=== PATIENT | female | born 1960 | race Caucasian/White ===

== ENCOUNTER 2024-10-11 06:13 | Inpatient (IN) | payer BC ==
[~2024-10-11] VITALS: Ht 167.6 cm; Wt 88.3 kg
--- NOTE | 2024-10-11 07:08 | ED.PDOC ---
GI ASSESSMENT HPI Comments 64 y/o F, with PMH of IBS and fibromyalgia presents to the ED for CC of abdominal pain. Patient states, she has been experiencing epigastric abdominal that radiates from her back x4days. Patient reports, being seen at [facility] on Thursday (10/07/24) for SS and being told to follow up with her PCP for a CT scan of her abdomen. Patient denies nausea, vomiting, or diarrhea. No other associated symptoms, modifiers, recent injuries or sick contacts present at this time. Chief Complaint: Abdominal Pain Time Seen by MD: 06:30 Reviewed Notes: Nurses Notes, Medications, Allergies Allergies: Coded Allergies: Aspirin (Verified Allergy, Severe, 10/11/24) Erythromycin (Verified Allergy, Severe, 10/11/24) Ibuprofen (Verified Allergy, Severe, 10/11/24) Milnacipran (Verified Allergy, Severe, 10/11/24) Information Source: Patient Mode of Arrival: Ambulatory Timing: Days Duration: Since onset Prehospital treatment: None Quality: None Vomitus: None Stool: Normal Severity: Moderate Recent: None Recent Hx of: None Pain Location: Epigastric Modifying Factors: Nothing Associated sign and symptoms: Abdominal Pain Past Medical History Past Medical History (Other): IBS, FIBROMYALGIA Surgical History: Appendectomy [employer] History: Ovarian Cysts Family History Family History: Unknown Social History Smoker: Non-Smoker Alcohol: Denies ETOH Use Drugs: Denies Drug Use Lives In: Home Constitutional: denies: chills, diaphoresis, fatigue, fever, malaise, sweats, weakness, others EENTM: denies: blurred vision, double vision, ear bleeding, ear discharge, ear drainage, ear pain, ear ringing, eye pain, eye redness, hearing loss, mouth pain, mouth swelling, nasal discharge, nose bleeding, nose congestion, nose pain, photophobia, tearing, throat pain, throat swelling, voice changes, others Respiratory: denies: cough, hemoptysis, orthopnea, SOB at rest, shortness of breath, SOB with excertion, stridor, wheezing, others Cardiovascular: denies: chest pain, dizzy spells, diaphoresis, Dyspnea on exertion, edema, irregular heart beat, left arm pain, lightheadedness, palpitations, PND, syncope, others Gastrointestinal: reports: abdominal pain; denies: abdomen distended, blood streaked bowels, constipated, diarrhea, dysphagia, difficulty swallowing, hematemesis, melena, nausea, poor appetite, poor fluid intake, rectal bleeding, rectal pain, vomiting, others Genitourinary: denies: abnormal vagina bleeding, burning, dyspareunia, dysuria, flank pain, frequency, hematuria, incontinence, pain, , vagina discharge, urgency, others Neurological: denies: dizziness, fainting, headache, left sided numbness, left sided weakness, numbness, paresthesia, pre-existing deficit, right sided numbness, right sided weakness, seizure, speech problems, tingling, tremors, weakness, others Musculoskeletal: reports: back pain; denies: gout, joint pain, joint swelling, muscle pain, muscle stiffness, neck pain, others Integumetry: denies: bruises, change in color, change in hair/nails, dryness, laceration, lesions, lumps, rash, wounds, others Allergic/Immunocompromised: denies: Difficulty Healing, Frequent Infections, Hives, Itching, others Hematologic/Lymphatic: denies: anemia, blood clots, easy bleeding, easy bruising, swollen glands, others Endocrine: denies: excessive hunger, excessive sweating, excessive thirst, excessive urination, flushing, intolerance to cold, intolerance to heat, unexplained weight gain, unexplained weight loss, others Psychiatric: denies: anxiety, bipolar disorder, depression, hopeless, panic disorder, schizophrenia, sleepless, suicidal, others All Other Systems: Reviewed and Negative Physical Exam General Appearance: Moderate Distress HEENT: Normal ENT Inspection, Pharynx Normal, TMs Normal Neck: Full Range of Motion, Non-Tender, Normal, Normal Inspection Respiratory: Chest Non-Tender, Lungs Clear, No Accessory Muscle Use, No Respir atory Distress, Normal Breath Sounds Cardiovascular: No Edema, No JVD, No Murmur, No Gallop, Normal Peripheral Pulses, Regular Rate/Rhythm Breast Exam: Deferred Gastrointestinal: No Organomegaly, Non Tender, No Pulsatile Mass, Normal Bowel Sounds, Soft Genitalia: Deferred Pelvic: Deferred Rectal: Deferred Extremities: No calf tenderness, Normal capillary refill, Normal inspection, Normal range of motion, Non-tender, No pedal edema Musculoskeletal : Apperance: Normal Neurologic: Alert, brush filler hand II-XII nml as Tested, No Motor Deficits, Normal Affect, Normal Mood, No Sensory Deficits Cerebellar Function: Normal Reflexes: Normal Skin: Dry, Normal Color, Warm Peripheral Pulses: 3+ Radial (R), 3+ Radial (L) Lymphatic: No Adenopathy EKG EKG : Pulse Rate (adult): 59 [place]: Normal Cardiac Rhythm: NSR Block: None Hypertrophy: None ST: Normal Was a procedure done? Was a procedure done?: No GI differential Dx Differential Diagnosis: Cholangitis, Cholecystitis, Diverticular disease, Esophagitis, Gastritis/PUD, Gastroenteritis, Inflammatory BD, Ischemic Bowel X-Ray, Labs, Meds, VS Vital Signs Date Time Temp Pulse Resp B/P (MAP) Pulse Ox O2 Delivery O2 Flow Rate FiO2 10/11/24 08:43 59 10/11/24 07:35 97.0 74 16 151/82 (105) 96 97.0 10/11/24 06:20 97.5 82 18 138/83 (101) 96 97.5 Lab Test 10/11/24 07:01 10/11/24 06:45 Range/Units White Blood Count 11.1 H 4.4-10.8 10^3/uL Red Blood Count 5.22 H 4.0-5.20 10^6/uL Hemoglobin 14.7 12.2-16.2 g/dL Hematocrit 43.6 36.0-46.0 % Mean Corpuscular Volume 83.5 80.0-100.0 fL Mean Corpuscular Hemoglobin 28.1 28.0-32.0 pg Mean Corpuscular Hemoglobin Concent 33.7 32.0-36.0 g/dL Red Cell Distribution Width 15.8 H 11.8-14.3 % Platelet Count 384 140-450 10^3/uL Mean Platelet Volume 7.7 6.9-10.8 fL Neutrophils (%) (Auto) 76.2 37.0-80.0 % Lymphocytes (%) (Auto) 16.0 10.0-50.0 % Monocytes (%) (Auto) 4.8 0.0-12.0 % Eosinophils (%) (Auto) 2.1 0.0-7.0 % Basophils (%) (Auto) 0.9 0.0-2.0 % Neutrophils # (Auto) 8.4 1.6-8.6 10 ^3/uL Lymphocytes # (Auto) 1.8 0.4-5.4 10 ^3/uL Monocytes # (Auto) 0.5 0-1.3 10 ^3/uL Eosinophils # (Auto) 0.2 0-0.8 10 ^3/uL Basophils # (Auto) 0.1 0-0.2 10 ^3/uL Nucleated Red Blood Cells 0.0 % Sodium Level 142 136-145 mmol/L Potassium Level 3.3 L 3.5-5.1 mmol/L Chloride Level 104 98-107 mmol/L Carbon Dioxide Level 26 20-31 mmol/L Anion Gap 12 5-15 Blood Urea Nitrogen 13 9-23 mg/dL Creatinine 1.03 H 0.550-1.02 mg/dL Glomerular Filtration Rate Calc 61 >90 mL/min BUN/Creatinine Ratio 12.6 10.0-20.0 Serum Glucose 92 74-106 mg/dL Calcium Level 10.8 H 8.7-10.4 mg/dL Urine Color Yellow Yellow Urine Clarity Clear Clear Urine pH 5.5 5.0-9.0 Urine Specific [place] 1.028 1.001-1.035 Urine Protein Negative Negative Urine Ketones Trace Negative Urine Blood Negative Negative /uL Urine Nitrite Negative Negative Urine Bilirubin Negative Negative Urine Urobilinogen Normal Negative mg/dL Urine Leukocyte Esterase 1+ Negative /uL Urine RBC 5 0 - 4 /hpf Urine Microscopic WBC 6 H 0-5 /HPF Urine Squamous Epithelial Cells Few <5 /hpf Urine Calcium Oxalate Crystals Few None Seen Urine Bacteria None seen None Seen /hpf Urine Mucus Few None Seen Urine Glucose Normal Normal mg/dL Current Medications Medications (Trade) Dose Ordered Sig/Crista Route Start Time Stop Time Status Last Admin Pantoprazole Sodium (Protonix) 40 mg ONCE ONCE IV 10/11/24 07:15 10/11/24 07:16 DC 10/11/24 08:02 Ceftriaxone Sodium 50 ml @ 100 mls/hr ONCE ONCE IV 10/11/24 08:00 10/11/24 08:29 DC 10/11/24 08:05 Potassium Bicarbonate (Klor-Con/Ef) 50 meq ONCE ONCE PO 10/11/24 08:00 10/11/24 08:01 DC 10/11/24 08:05 Patient alert. Complaining of abdominal pain for many months. Vitals stable. Answering questions. Seen in urgent care last week for which she was told to get a scan. She continues to have abdominal pain where she can not eat. Abdomen is soft. Possibly need endoscope colonoscopy. Explained to the patient. Continue monitoring. [address] [address] Ph: [phone] DIAGNOSTIC IMAGING Diagnostic Imaging Report : [id number] Signed PATIENT: PETRA PARADACCT: [id number] UNIT: [id number] : 1960 LOC: ER ROOM / BED: / AGE / SEX: 64 / F ADM STATUS: REG ER SERVICE [id number] ORDERING PHYSICIAN: JULIA COFFEY MD PROCEDURE(s): ABPL - CT AB PEL WO CON-NO ORAL OR IV REASON: colitis ORDER NUMBER(s): [id number], ACCESSION NUMBER(s): [id number] CLINICAL INFORMATION: Colitis. TECHNIQUE: Axial CT images of the abdomen and pelvis were obtained without IV contrast. Coronal and sagittal reformatted images were obtained, reviewed, and stored. Evaluation of the parenchymal organs is limited without IV contrast. Evaluation of the bowel and mesentery is limited without oral contrast. All CT scans at this medical facility are performed using dose modulation techniques as appropriate to a performed exam including the following: Automated exposure control was utilized; adjustment of the MA and/or KV according to patient size; and use of iterative reconstruction technique. CTDIvol = 11.14 mGy DLP = 598.4 mGy-cm COMPARISON: None FINDINGS: Lung bases: Lung bases are clear. Liver: Small low-attenuation lesion near the hepatic dome, possible cyst, but too small to characterize. Biliary: Gallbladder is moderately distended. No calcified gallstones visualized. Spleen: Unremarkable. Pancreas: Grossly unremarkable in its noncontrast enhanced appearance. Adrenal glands: Unremarkable. No mass. Kidneys: No hydronephrosis. No renal or ureteral calculi. Aorta/Vascular: No aneurysm or significant calcification. Retroperitoneum: No mass or lymphadenopathy. Bowel/mesentery: No small bowel obstruction. No free air or free fluid. Appendix is not visualized. Scattered colonic diverticula without adjacent inflammatory changes to suggest diverticulitis. Pelvic organs: Grossly unremarkable. Bladder: Underdistended and suboptimally evaluated. No gross abnormality identified. Abdominal wall: No mass or hernia. Bones: No acute fracture or suspicious intraosseous lesion. IMPRESSION: 1. Scattered colonic diverticula without adjacent inflammatory changes to suggest diverticulitis. 2. No small bowel obstruction. 3. Distended gallbladder with no calcified gallstones visualized. Correlate with clinical findings. If clinically indicated, ultrasound could be obtained to further evaluate. 4. Additional nonacute findings as described above. ATED BY: OBED VOGEL DO DICTATED DATE/TIME: 10/11/24903 SIGNED BY: OBED VOGEL DO SIGNED DATE/TIME: 10/11/24903 CC: Time of 1ST Reevaluation: 07:00 Reevaluation 1ST: Unchanged Patient Education/Counseling: Diagnosis, Treatment Family Education/Counseling: No Family Present SEPSIS Sepsis Screen Date sepsis recognized/suspect: Oct 11, 2024 Time Sepsis recognized/suspect: 619 Recent Procedure: No On Antibiotic Therapy: No Respiratory Rate >20: No Heart Rate >90: No Temp<36 C (96.8 F) or >38.3 C: No SBP <90 or MAP <65 mmHG: No New Acute Mental Status Change: No Is the patient on CPAP, BIPAP,: No Physician Orders Ct Ab Pel Wo Con-No Oral Or Iv (10/11/24 07:54) Electrocardigram (10/11/24 08:51) Vital Signs Date Time Temp Pulse Resp B/P (MAP) Pulse Ox O2 Delivery O2 Flow Rate FiO2 10/11/24 08:43 59 10/11/24 07:35 97.0 74 16 151/82 (105) 96 97.0 10/11/24 06:20 97.5 82 18 138/83 (101) 96 97.5 Laboratory Tests Test 10/11/24 07:01 White Blood Count 11.1 10^3/uL (4.4-10.8) H Medications Medications Dose Ordered Sig/Crista Route Start Time Stop Time Status Last Admin Dose Admin Ceftriaxone Sodium 50 ml @ 100 mls/hr ONCE ONCE IV 10/11/24 08:00 10/11/24 08:29 DC 10/11/24 08:05 Pantoprazole Sodium 40 mg ONCE ONCE IV 10/11/24 07:15 10/11/24 07:16 DC 10/11/24 08:02 Potassium Bicarbonate 50 meq ONCE ONCE PO 10/11/24 08:00 10/11/24 08:01 DC 10/11/24 08:05 Departure 1 Departure Time of Disposition: 07:14 Impression: Primary Impression: Acute abdominal pain Additional Impression: Gastritis Qualified Codes: K29.00 - Acute gastritis without bleeding Disposition: ADMITTED INPATIENT Admit to: Med Surg Condition: Guarded Critical Care Note Critical Care Time?: No Stability Stability form required: No Heart Score Heart Score: Heart Score Response (Comments) Value History N/A 0 EKG N/A 0 Age N/A 0 Risk Factors N/A 0 Troponin N/A 0 Total 0 I personally scribed for JULIA COFFEY MD ([email or web address]) on 10/11/24 at 07:08. Electronically submitted by Maria Teresa Reed ([email or web address]). I personally scribed for JULIA COFFEY MD ([email or web address]) on 10/11/24 at 09:09. Electronically submitted by Mari aTeresa Reed ([email or web address]). JULIA COFFEY MD Oct 11, 2024 07:08
[2024-10-11 07:33] LABS: Hematocrit 43.6 % (36.0-46.0); Hemoglobin 14.7 g/dL (12.2-16.2); Mean Corpuscular Hemoglobin 28.1 pg (28.0-32.0); Mean Corpuscular Volume 83.5 fL (80.0-100.0); Nucleated Red Blood Cells % 0.0 %
[2024-10-11 07:37] LABS: Urine Protein, UAD Negative (Negative)
[2024-10-11 07:43] LABS: Chloride 104 mmol/L (98-107); Sodium 142 mmol/L (136-145)
[2024-10-11 07:44] LABS: Anion Gap 12 (5-15); Carbon Dioxide 26 mmol/L (20-31)
[2024-10-11 07:49] LABS: Calcium 10.8 mg/dL (8.7-10.4); Potassium 3.3 mmol/L (3.5-5.1)
[2024-10-11 07:50] LABS: BUN/Creatinine Ratio 12.6 (10.0-20.0); Blood Urea Nitrogen 13 mg/dL (9-23); Glucose 92 mg/dL (74-106)
[2024-10-11] MEDS: PANTOPRAZOLE 40 MG/10 ML VIAL INJ IV ONE (08:02)
[2024-10-11] MEDS: cefTRIAXone 1GM/50ML D5W 50 ML IV ONE (08:05)
[2024-10-11] MEDS: POTASSIUM EFFERVESENT TAB 25 MEQ PO ONE (08:05)
--- NOTE | 2024-10-11 09:06 | DVH ---
CLINICAL INFORMATION: Colitis. TECHNIQUE: Axial CT images of the abdomen and pelvis were obtained without IV contrast. Coronal and s agittal reformatted images were obtained, reviewed, and stored. Evaluation of the parenchymal organs is limited without IV contrast. Evaluation of the bowel and mesentery is limited without oral contras t. All CT scans at this medical facility are performed using dose modulation techniques as appropriat e to a performed exam including the following: Automated exposure control was utilized; adjustment of the MA and/or KV according to patient size; and use of iterative reconstruction technique. CTDIvol = 11.14 mGy DLP = 598.4 mGy-cm COMPARISON: None FINDINGS: Lung bases: Lung bases are clear. Liver: Small low-attenuation lesion near the hepatic dome, possible cyst, but too small to characteri ze. Biliary: Gallbladder is moderately distended. No calcified gallstones visualized. Spleen: Unremarkable. Pancreas: Grossly unremarkable in its noncontrast enhanced appearance. Adrenal glands: Unremarkable. No mass. Kidneys: No hydronephrosis. No renal or ureteral calculi. Aorta/Vascular: No aneurysm or significant calcification. Retroperitoneum: No mass or lymphadenopathy. Bowel/mesentery: No small bowel obstruction. No free air or free fluid. Appendix is not visualized. S cattered colonic diverticula without adjacent inflammatory changes to suggest diverticulitis. Pelvic organs: Grossly unremarkable. Bladder: Underdistended and suboptimally evaluated. No gross abnormality identified. Abdominal wall: No mass or hernia. Bones: No acute fracture or suspicious intraosseous lesion. IMPRESSION: 1. Scattered colonic diverticula without adjacent inflammatory changes to suggest diverticulitis. 2. No small bowel obstruction. 3. Distended gallbladder with no calcified gallstones visualized. Correlate with clinical findings. I f clinically indicated, ultrasound could be obtained to further evaluate. 4. Additional nonacute findings as described above.
[2024-10-11] MEDS ORDERED: ONDANSETRON HCL 4 MG/2 ML VIAL IV PRN (09:45)
[2024-10-11] MEDS ORDERED: DOCUSATE SOD 100 MG CAP PO PRN (09:45)
[2024-10-11] MEDS ORDERED: MORPHINE SULFATE INJ 2 MG/ml SYRG IV PRN (09:45)
[2024-10-11] MEDS ORDERED: ACETAMINOPHEN 325 MG TAB PO PRN (09:45)
--- NOTE | 2024-10-11 09:48 | DVHHP2 ---
History of Present Illness Reason for Visit: Abdominal pain History of Present Illness Lolis Biggs is a 64-year-old female with past medical history of fibromyalgia, hypertension, and IBS, who came to the hospital due to abdominal pain. Patient states her abdominal pain started about 1 week ago. She describes it as epigastric, radiates to her back, with associated nausea and vomiting. State she has had a hard time keeping food and drink down for the last week. Cardiovascular: HTN GI: Irritable bowel disease Rheumatologic: Fibromyalgia Past Surgical History: Appendectomy, Other (right shoulder, ovarian cyst removal) Smoke: No ALCOHOL: none Drugs: None Lives: with Family Domestic Violence: Neg Review of Systems Constitutional: No: Fever, Chills, Sweats, Weakness, Malaise, Other Eyes: No: Pain, Vision change, Conjunctivae inflammation, Eyelid inflammation, Other, Redness ENT: No: Ear pain, Ear discharge, Nose pain, Nose discharge, Nose congestion, Mouth pain, Mouth swelling, Throat pain, Throat swelling, Other Respiratory: No: Cough, Dry, Shortness of breath, SOB with excertion, Wheezing, Hemoptysis, Pleuritic Pain, Sputum, Wheezing, Other Cardiovascular: No: Chest Pain, Palpitations, Orthopnea, Paroxysmal Noc. Dyspnea, Edema, Lt Headedness, Other Gastrointestinal: Nausea, Vomiting, Abdominal Pain; No: Diarrhea, Constipation, Melena, Hematochezia, Other Genitourinary: No Dysuria, No Frequency, No Incontinence, No Hematuria, No Retention, No Other Musculoskeletal: No: other, neck pain, shoulder pain, arm pain, back pain, hand pain, leg pain, foot pain Skin: No: Rash, Lesions, Jaundice, Bruising, Other Neurological: No: Weakness, Numbness, Incoordination, Change in speech, Confusion, Seizures, Other Allergies: Coded Allergies: Aspirin (Verified Allergy, Severe, 10/11/24) Erythromycin (Verified Allergy, Severe, 10/11/24) Ibuprofen (Verified Allergy, Severe, 10/11/24) Milnacipran (Verified Allergy, Severe, 10/11/24) Acetaminophen (Verified Allergy, Unknown, 10/11/24) Codeine (Verified Allergy, Unknown, 10/11/24) Hydrocodone (Verified Allergy, Unknown, 10/11/24) Procaine (Verified Allergy, Unknown, 10/11/24) Exam Vital Signs Vital Signs Date Time Temp Pulse Resp B/P (MAP) Pulse Ox O2 Delivery O2 Flow Rate FiO2 10/11/24 09:09 59 10/11/24 07:35 97.0 16 151/82 (105) 96 97.0 General Appearance: Alert, Oriented X3, Cooperative, mild distress HEENT: Atraumatic, PERRLA Respiratory: Clear to auscultation, Normal air movement Cardiovascular: Regular rate, Normal S1, Normal S2 Abdominal: Normal bowel sounds, Soft, Other (epigastric pain) Extremities: No clubbing, No cyanosis, No edema, Normal pulses, No t enderness/swelling Skin: No rashes, No breakdown, No significant lesion Neuro: Normal gait, Normal speech, Strength at 5/5 X4 ext, Normal tone Psych/Mental Status: Mental status NL, Mood NL Labs/Xrays Labs Test 10/11/24 07:01 10/11/24 06:45 Range/Units White Blood Count 11.1 H 4.4-10.8 10^3/uL Red Blood Count 5.22 H 4.0-5.20 10^6/uL Hemoglobin 14.7 12.2-16.2 g/dL Hematocrit 43.6 36.0-46.0 % Mean Corpuscular Volume 83.5 80.0-100.0 fL Mean Corpuscular Hemoglobin 28.1 28.0-32.0 pg Mean Corpuscular Hemoglobin Concent 33.7 32.0-36.0 g/dL Red Cell Distribution Width 15.8 H 11.8-14.3 % Platelet Count 384 140-450 10^3/uL Mean Platelet Volume 7.7 6.9-10.8 fL Neutrophils (%) (Auto) 76.2 37.0-80.0 % Lymphocytes (%) (Auto) 16.0 10.0-50.0 % Monocytes (%) (Auto) 4.8 0.0-12.0 % Eosinophils (%) (Auto) 2.1 0.0-7.0 % Basophils (%) (Auto) 0.9 0.0-2.0 % Neutrophils # (Auto) 8.4 1.6-8.6 10 ^3/uL Lymphocytes # (Auto) 1.8 0.4-5.4 10 ^3/uL Monocytes # (Auto) 0.5 0-1.3 10 ^3/uL Eosinophils # (Auto) 0.2 0-0.8 10 ^3/uL Basophils # (Auto) 0.1 0-0.2 10 ^3/uL Nucleated Red Blood Cells 0.0 % Sodium Level 142 136-145 mmol/L Potassium Level 3.3 L 3.5-5.1 mmol/L Chloride Level 104 98-107 mmol/L Carbon Dioxide Level 26 20-31 mmol/L Anion Gap 12 5-15 Blood Urea Nitrogen 13 9-23 mg/dL Creatinine 1.03 H 0.550-1.02 mg/dL Glomerular Filtration Rate Calc 61 >90 mL/min BUN/Creatinine Ratio 12.6 10.0-20.0 Serum Glucose 92 74-106 mg/dL Calcium Level 10.8 H 8.7-10.4 mg/dL Urine Color Yellow Yellow Urine Clarity Clear Clear Urine pH 5.5 5.0-9.0 Urine Specific [place] 1.028 1.001-1.035 Urine Protein Negative Negative Urine Ketones Trace Negative Urine Blood Negative Negative /uL Urine Nitrite Negative Negative Urine Bilirubin Negative Negative Urine Urobilinogen Normal Negative mg/dL Urine Leukocyte Esterase 1+ Negative /uL Urine RBC 5 0 - 4 /hpf Urine Microscopic WBC 6 H 0-5 /HPF Urine Squamous Epithelial Cells Few <5 /hpf Urine Calcium Oxalate Crystals Few None Seen Urine Bacteria None seen None Seen /hpf Urine Mucus Few None Seen Urine Glucose Normal Normal mg/dL TECHNIQUE: Axial CT images of the abdomen and pelvis were obtained without IV contrast. FINDINGS: Lung bases: Lung bases are clear. Liver: Small low-attenuation lesion near the hepatic dome, possible cyst, but too small to characterize. Biliary: Gallbladder is moderately distended. No calcified gallstones visualized. Spleen: Unremarkable. Pancreas: Grossly unremarkable in its noncontrast enhanced appearance. Adrenal glands: Unremarkable. No mass. Kidneys: No hydronephrosis. No renal or ureteral calculi. Aorta/Vascular: No aneurysm or significant calcification. Retroperitoneum: No mass or lymphadenopathy. Bowel/mesentery: No small bowel obstruction. No free air or free fluid. Appendix is not visualized. Scattered colonic diverticula without adjacent inflammatory changes to suggest diverticulitis. Pelvic organs: Grossly unremarkable. Bladder: Underdistended and suboptimally evaluated. No gross abnormality identified. Abdominal wall: No mass or hernia. Bones: No acute fracture or suspicious intraosseous lesion. IMPRESSION: 1. Scattered colonic diverticula without adjacent inflammatory changes to suggest diverticulitis. 2. No small bowel obstruction. 3. Distended gallbladder with no calcified gallstones visualized. Correlate with clinical findings. If clinically indicated, ultrasound could be obtained to f urther evaluate. 4. Additional nonacute findings as described above. SEPSIS Sepsis Screen Date sepsis recognized/suspect: Oct 11, 2024 Time Sepsis recognized/suspect: 619 Recent Procedure: No On Antibiotic Therapy: No Respiratory Rate >20: No Heart Rate >90: No Temp<36 C (96.8 F) or >38.3 C: No SBP <90 or MAP <65 mmHG: No New Acute Mental Status Change: No Is the patient on CPAP, BIPAP,: No Physician Orders Ct Ab Pel Wo Con-No Oral Or Iv (10/11/24 07:54) Electrocardigram (10/11/24 08:51) Abdomen Limited (10/11/24 09:35) Vital Signs Date Time Temp Pulse Resp B/P (MAP) Pulse Ox O2 Delivery O2 Flow Rate FiO2 10/11/24 09:09 59 10/11/24 08:43 59 10/11/24 07:35 97.0 74 16 151/82 (105) 96 97.0 10/11/24 06:20 97.5 82 18 138/83 (101) 96 97.5 Laboratory Tests Test 10/11/24 07:01 White Blood Count 11.1 10^3/uL (4.4-10.8) H Medications Medications Dose Ordered Sig/Crista Route Start Time Stop Time Status Last Admin Dose Admin Ceftriaxone Sodium 50 ml @ 100 mls/hr ONCE ONCE IV 10/11/24 08:00 10/11/24 08:29 DC 10/11/24 08:05 100 MLS/HR Pantoprazole Sodium 40 mg ONCE ONCE IV 10/11/24 07:15 10/11/24 07:16 DC 10/11/24 08:02 40 MG Potassium Bicarbonate 50 meq ONCE ONCE PO 10/11/24 08:00 10/11/24 08:01 DC 10/11/24 08:05 50 MEQ Assessment/Plan Assessment/Plan Assessment: Acute abdominal pain, Possible gastritis, Possible diverticulitis, IBS, Fibromyalgia, Hypertension, Plan: Admit to Med-Surg, Abdominal ultrasound, GI consult, IV hydration, IV antibiotics, Antiemetics, Home medications reconciled, Plan discussed with: Patient My Orders Orders - NOBLE LEAVITT Procedure Category Date Status Time Abdomen Limited US 10/11/24 Logged 09:35 Date of Service: Oct 11, 2024 Billing Provider: NOBLE LEAVITT Common Visit Codes: [id number] INP/OBS CARE (MOD) NOBLE LEAVITT Oct 11, 2024 09:47
[2024-10-11] MEDS: HYDROcodone-ACET 5/325MG TAB PO PRN (10:01)
--- NOTE | 2024-10-11 11:10 | DVH ---
INDICATION: Possible cholecystitis TECHNIQUE: Multiple real-time sonographic images of the abdomen were obtained. COMPARISON: None FINDINGS: The liver is homogenous in echogenicity. The liver measures 15cm. No intrahepatic biliary ductal dilatation is noted. The gallbladder wall measures 0.2 cm and is unremarkable. No gallstones or sludge is seen. The commo n duct measures 0.5 cm and is unremarkable. No pericholecystic fluid is noted. The right kidney measures 9cm. No hydronephrosis. The pancreas is not well visualized due to obscuration from bowel gas. The visualized portions of the IVC and aorta are grossly unremarkable. IMPRESSION: Normal exam of the abdomen.
[2024-10-11] MEDS ORDERED: LEVOTAB51 PO (11:27)
[2024-10-11] MEDS ORDERED: AMLO1TAB23 PO (11:27)
[2024-10-11] MEDS ORDERED: METOCLOPRAMIDE HCL 5MG/ml INJ 2ml VIAL IV PRN (11:30)
[2024-10-11] MEDS: SODIUM CHLORIDE 0.9% 1,000 ML IV ONE (11:56)
[2024-10-11 14:00] VITALS: BP 139/76; PULSE 62; RESP 16; TEMP 97.5; O2SAT 94
--- NOTE | 2024-10-11 14:36 | DVHINCON2 ---
GI Consult Consult Note GI consult note Date of Consultation: 10/11/2024 Chief Complaint: Possible gastritis, possible diverticulitis Referring Physician: Amos ROMERO H&P: 64-year-old female with past medical history of fibromyalgia, hypertension and IBS presented to hospital complaining of epigastric abdominal pain, which started one month ago. Patient also has nausea and vomiting about a week ago, throwing up mostly food that she is eating, denies any hematemesis. Patient has noticed dark stool. No red blood in stool. Has been taking Pepto-Bismol [id number] for abdominal pain. Diagnosed with PUD in past. No EGD in past. Patient admits to taking Excedrin two pills every 4 hours because of her pain. Denies alcohol use Past Medical History: Fibromyalgia, hypertension, IBS Past Surgical History: Appendectomy, right shoulder, ovarian cyst removal Social History: NO smoking, drinking ETOH and use of illegal drugs. Family History: Noncontributory Review of Systems: Constitutional: no fever, chill, weight loss HEENT: no eye pain, no hearing loss, no oral lesion, no scleral icterus Heart: no chest pain, no chest pressure Lung: no cough, no dyspnea with exertion Abdomen: see HPI Physical exam: General: NAD, AAOX3 Chest: lung brown clear to auscultation Heart: RRR, no murmur Abdomen: Epigastric abdominal tenderness to palpation, +BS Labs: Labs Test 10/11/24 07:01 10/11/24 06:45 Range/Units White Blood Count 11.1 H 4.4-10.8 10^3/uL Red Blood Count 5.22 H 4.0-5.20 10^6/uL Hemoglobin 14.7 12.2-16.2 g/dL Hematocrit 43.6 36.0-46.0 % Mean Corpuscular Volume 83.5 80.0-100.0 fL Mean Corpuscular Hemoglobin 28.1 28.0-32.0 pg Mean Corpuscular Hemoglobin Concent 33.7 32.0-36.0 g/dL Red Cell Distribution Width 15.8 H 11.8-14.3 % Platelet Count 384 140-450 10^3/uL Mean Platelet Volume 7.7 6.9-10.8 fL Neutrophils (%) (Auto) 76.2 37.0-80.0 % Lymphocytes (%) (Auto) 16.0 10.0-50.0 % Monocytes (%) (Auto) 4.8 0.0-12.0 % Eosinophils (%) (Auto) 2.1 0.0-7.0 % Basophils (%) (Auto) 0.9 0.0-2.0 % Neutrophils # (Auto) 8.4 1.6-8.6 10 ^3/uL Lymphocytes # (Auto) 1.8 0.4-5.4 10 ^3/uL Monocytes # (Auto) 0.5 0-1.3 10 ^3/uL Eosinophils # (Auto) 0.2 0-0.8 10 ^3/uL Basophils # (Auto) 0.1 0-0.2 10 ^3/uL Nucleated Red Blood Cells 0.0 % Sodium Level 142 136-145 mmol/L Potassium Level 3.3 L 3.5-5.1 mmol/L Chloride Level 104 98-107 mmol/L Carbon Dioxide Level 26 20-31 mmol/L Anion Gap 12 5-15 Blood Urea Nitrogen 13 9-23 mg/dL Creatinine 1.03 H 0.550-1.02 mg/dL Glomerular Filtration Rate Calc 61 >90 mL/min BUN/Creatinine Ratio 12.6 10.0-20.0 Serum Glucose 92 74-106 mg/dL Calcium Level 10.8 H 8.7-10.4 mg/dL Urine Color Yellow Yellow Urine Clarity Clear Clear Urine pH 5.5 5.0-9.0 Urine Specific [place] 1.028 1.001-1.035 Urine Protein Negative Negative Urine Ketones Trace Negative Urine Blood Negative Negative /uL Urine Nitrite Negative Negative Urine Bilirubin Negative Negative Urine Urobilinogen Normal Negative mg/dL Urine Leukocyte Esterase 1+ Negative /uL Urine RBC 5 0 - 4 /hpf Urine Microscopic WBC 6 H 0-5 /HPF Urine Squamous Epithelial Cells Few <5 /hpf Urine Calcium Oxalate Crystals Few None Seen Urine Bacteria None seen None Seen /hpf Urine Mucus Few None Seen Urine Glucose Normal Normal mg/dL Imaging: CT abdomen pelvis IMPRESSION: 1. Scattered colonic diverticula without adjacent inflammatory changes to suggest diverticulitis. 2. No small bowel obstruction. 3. Distended gallbladder with no calcified gallstones visualized. Correlate with clinical findings. If clinically indicated, ultrasound could be obtained to further evaluate. 4. Additional nonacute findings as described above. Abdominal ultrasound IMPRESSION: Normal exam of the abdomen. Assessment: Abdominal pain Nausea and vomiting Plan: Discussed with Dr. Grant - Pt will be scheduled for an EGD tomorrow 10/12/2024. Pt was informed of the risks (bleeding, infection, perforation, reaction to sedation medications and cardiopulmonary arrest) and benefit and is agreeable to undergo the procedures. NPO after midnight Protonix and Carafate Monitor labs Discussed plan with patient and RN Thank you for this consult Date of Service: Oct 11, 2024 Billing Provider: MILY DAY Common Visit Codes: CONSULT ONLY Consultation Codes: [id number] CONSULT <60MIN MILY DAY Oct 11, 2024 14:36
[2024-10-11 18:21] VITALS: BP 134/66; PULSE 68; RESP 18; TEMP 97.8; O2SAT 96
[2024-10-11 21:00] VITALS: BP 136/81; PULSE 88; RESP 17; TEMP 97.9; O2SAT 95
[2024-10-11] MEDS: SUCRALFATE 1 GM/10 ML ORAL SUSP PO SCH (21:44)
[2024-10-11 22:14] VITALS: O2SAT 96
[2024-10-12 05:00] VITALS: BP 141/79; PULSE 61; RESP 18; TEMP 97.9; O2SAT 94
[2024-10-12 06:49] LABS: Hematocrit 36.1 % (36.0-46.0); Hemoglobin 12.3 g/dL (12.2-16.2); Mean Corpuscular Hemoglobin 28.4 pg (28.0-32.0); Mean Corpuscular Volume 83.1 fL (80.0-100.0); Nucleated Red Blood Cells % 0.1 %
[2024-10-12 06:56] LABS: INR 1.03 (0.9-1.15); Prothrombin Time 10.9 sec (9.3-11.8)
[2024-10-12 07:01] LABS: Alanine Aminotransferase 13 U/L (7-40); Albumin 4.1 g/dL (3.2-4.8); Alkaline Phosphatase 76 U/L (46-116); Anion Gap 11 (5-15); BUN/Creatinine Ratio 14.8 (10.0-20.0); Bilirubin, Total 0.4 mg/dL (0.2-1.0); Blood Urea Nitrogen 13 mg/dL (9-23); Calcium 9.9 mg/dL (8.7-10.4); Carbon Dioxide 24 mmol/L (20-31); Glucose 81 mg/dL (74-106); Potassium 3.8 mmol/L (3.5-5.1); Sodium 143 mmol/L (136-145); Total Protein 6.5 g/dL (5.7-8.2)
[2024-10-12 07:09] LABS: Chloride 108 mmol/L (98-107)
--- NOTE | 2024-10-12 07:46 | ECG ---
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
[2024-10-12 09:00] VITALS: BP 130/75; PULSE 64; RESP 16; TEMP 97.8; O2SAT 95
[2024-10-12] MEDS: LEVOCETIRIZINE 5 MG PO SCH (10:00)
[2024-10-12] MEDS ORDERED: PATIENTS OWN MEDICATION (Amlodipine Besylate 1 TAB) PO SCH (10:00)
[2024-10-12] MEDS: PANTOPRAZOLE 40 MG/10 ML VIAL INJ IV SCH ×2 (10:31→22:18)
[2024-10-12] MEDS ORDERED: ONDANSETRON HCL 4 MG/2 ML VIAL ONE (12:51)
[2024-10-12] MEDS ORDERED: PROPOFOL 10 MG/ML 20 ML IV ONE (12:51)
[2024-10-12] MEDS ORDERED: METOCLOPRAMIDE HCL 5MG/ml INJ 2ml VIAL ONE (12:51)
[2024-10-12 13:04] VITALS: PULSE 89; RESP 12; O2SAT 98
--- NOTE | 2024-10-12 13:26 | DVHOP2 ---
Operative Report DATE OF OPERATION: 10/12/24 PROCEDURE: Upper Endoscopy with biopsy. PREOPERATIVE INDICATION: The patient is a 64 -year-old female undergoing endoscopy for nausea vomiting abdominal pain and questionable history of coffee- ground POSTOPERATIVE DIAGNOSES: 1. 2-3 cm sliding-type hiatal hernia with slightly irregular squamocolumnar junction minimal grade a erosive esophagitis 2. Moderate to severe gastritis involving the antrum and distal body of the stomach with multiple gastric ulcers and erosions 3. Wogscloe-ce-glglla duodenitis with a 2 cm duodenal postbulbar ulcer on the superior anterior surface with minimal oozing at the edges from scope pressure ; postbulbar duodenal spasm 4. Otherwise normal examination up to the 2nd and 3rd part of the duodenum with no fresh or old blood in the upper GI tract at this time good bile drainage PROCEDURE PERFORMED BY: Teja Grant GI NURSE: Yue SCOPE: Olympus videoendoscope. ASA CLASS: 3. PREOPERATIVE MEDICATIONS: Mac sedation, Obed PROCEDURE IN DETAIL: After obtaining an informed consent, the patient was placed on left lateral decubitus position. The patient was then sedated with the above medications. A bite block was placed between her teeth. The endoscope was then passed through the oropharynx, into the esophagus, and through the stomach and pylorus up to the second and third part of the duodenum. The endoscope was then withdrawn. Second and 3rd part of the duodenal was normal and there was good bile drainage. The duodenal bulb and postbulbar area showed zqwvgkol-cb-saibad duodenitis There was a 2 cm postbulbar duodenal ulcer on the anterior superior surface of the postbulbar area with surrounding edema and spasm and oozing from scope pressure There was no visible vessel it was Marquis classification C. Duodenal biopsies were obtained. The pre-pyloric area and antrum and body showed [id number] gastritis There were multiple pre-pyloric antral gastric erosions and tiny ulcers. Gastric biopsies were obtained. On retroflexion the fundus and cardia were nor mal. The endoscope was then withdrawn into the distal esophagus where the patient had a 2-3 cm sliding-type hiatal hernia with minimal grade a erosive esophagitis The remaining distal and proximal esophagus and oropharynx were unremarkable The patient tolerated the procedure well without difficulty. COMPLICATIONS : None SPECIMENS: Duodenal biopsies Gastric biopsies DISPOSITION: Transfer back to the floor Stable PLAN: 1. Await for biopsy result 2. Will place pt on Protonix 40 mg bid IV 3. Carafate 1 g p.o. 4 times a day 4. Full liquid diet advance to soft mechanical 5. DC aspirin NSAIDs smoking alcohol TEJA GRANT MD Oct 12, 2024 13:26
--- NOTE | 2024-10-12 15:51 | DVHPNRES ---
Progress Note Date Seen: Oct 12, 2024 Resident Creating Document: LAUREN GONZALEZ RESIDENT Medical Necessity Reason Pt with a Central, PICC or Fol: No Subjective Review of Systems Lolis Biggs is a 64-year-old female with past medical history of fibromyalgia, hypertension and irritable bowel syndrome Came in with the complaints of abdominal pain yesterday. Patient states abdominal pain Has been present since August but but worsened day before yesterday after she went to the chiropractor. The abdominal pain is epigastric, Cramping in nature, 10/ 10 in intensity, radiates to the back , aggravated by movement and relieved by lying down in the bed and staying still. She took some Pepto-Bismol that helped very little with her pain and so she came to the emergency department. Patient states that she had a hard time keeping food and drink down from the last week. Patient denies any fever, chills, shortness of breath, chest pain, nausea or vomiting. PMH: Hypertension, irritable bowel syndrome, fibromyalgia PSH: Appendectomy, right shoulder surgery, ovarian cyst removal Social history: Patient lives with her family. She denies ever smoking, taking alcohol, taking any other illicit drugs. Family history: Reviewed and noncontributory to the management of this case Allergies: Cats, dogs, grass, aspirin()( increases heart rate), erythromycin( causes hives), ibuprofen( causes nausea), lidocaine( makes her ill), codeine( gives her hives) Home medications: Amlodipine ROS: Patient reports that she is feeling a bit better But she still has abdominal pain that aggravates on moving and she rates the pain as 7/ 10 in intensity. she reports she has been NPO since 12 and is ready for the EGD procedure. she is not nauseous and has not vomited. Rest of the ROS is negative Objective vital signs Vital Sign Date Time Temp Pulse Resp B/P (MAP) Pulse Ox O2 Delivery O2 Flow Rate FiO2 10/12/24 13:40 69 16 135/70 (91) 94 10/12/24 13:04 Mask 6.0 98 10/12/24 13:04 98.2 98.2 Total Intake and Output 10/11/24 10/11/24 10/12/24 15:00 23:00 07:00 Intake Total 50 ml 600 ml 100 ml Balance 50 ml 600 ml 100 ml medications Current Medications Medications Dose Ordered Sig/Crista Route Start Time Stop Time Status Last Admin Dose Admin Acetaminophen/ Hydrocodone Bitart 1 tab Q4HP PRN PO 10/11/24 09:45 10/12/24 00:52 1 TAB Ondansetron HCl 4 mg Q4HP PRN IV 10/11/24 09:45 Docusate Sodium 100 mg BIDPRN PRN PO 10/11/24 09:45 Acetaminophen 650 mg Q6HP PRN PO 10/11/24 09:45 Morphine Sulfate 2 mg Q4HPRN PRN IV 10/11/24 09:45 Metronidazole 100 ml @ 100 mls/hr Q8HR IV 10/11/24 14:00 10/12/24 05:35 100 MLS/HR Patient Own Medication 1 tab DAILY PO 10/12/24 10:00 Metoclopramide HCl 10 mg Q8HPRN PRN IV 10/11/24 11:30 Amlodipine Besylate 10 mg DAILY PO 10/12/24 10:00 Sucralfate 1 gm QID@0600,1130,1700,2200 PO 10/12/24 17:00 Pantoprazole Sodium 40 mg BID IV 10/12/24 22:00 Examination Pt is lying on bed General Appearance: Alert, Oriented X3, Cooperative, Not in acute distress HEENT: Atraumatic, Mucous membranes moist/pink Respiratory: Clear to auscultation, Normal air movement, No added sounds Cardiovascular: Regular rate, Normal S1, Normal S2, No murmurs Abdominal: Active bowel sounds, Soft, no distention, tenderness present in the upper right and left quadrant, epigastric region Extremities: No edema, Normal pulses, No tenderness/swelling Skin: No Significant rash, linear scar in the suprapubic region for ovarian cyst removal Neuro: Normal speech, sensorimotor deficits none Psych/Mental Status: Mental status NL, Mood NL Nurse was there as community development director during examination laboratory and microbiology Laboratory Tests 10/12/24 05:53 Test 10/12/24 05:53 Range/Units Serum Glucose 81 74-106 mg/dL Labs and/or images reviewed: Labs reviewed by me, Image(s) reviewed by me Problem List/Assessment/Plan Problem List/Assessment/Plan #acute abdominal pain due to severe gastro- duodenitis #hiatal hernia with erosive esophagitis -IV hydration -Ceftriaxone 1 g IV LD -Ondansetron for nausea -CT Abdomen and pelvis showed: - Scattered colonic diverticula without adjacent inflammatory changes to suggest diverticulitis. -No small bowel obstruction. - Distended gallbladder with no calcified gallstones visualized. Correlate with clinical findings. If clinically indicated, ultrasound could be obtained to further evaluate. -USG showed Normal exam of the abdomen. -patient kept NPO -GI suggested EGD, done today. shows: 1. 2-3 cm sliding-type hiatal hernia with slightly irregular squamocolumnar junction minimal grade a erosive esophagitis 2. Moderate to severe gastritis involving the antrum and distal body of the stomach with multiple gastric ulcers and erosions 3. Lqhvuzfv-qg-qrdnrx duodenitis with a 2 cm duodenal postbulbar ulcer on the superior anterior surface with minimal oozing at the edges from scope pressure ; postbulbar duodenal spasm -Protonix and Carafate given #history of hypertension -Continue with Amlodipine 0 g -monitor BP #history of IBD -continue to monitor GI prophylaxis: Protonix 40 mg IV b.i.d. DVT prophylaxis: patient ambulatory Diet: NPO Goals of care discussed with the patient for more than 27 minutes: Full code status Case discussed with Dr. Carcamo, patient and nurse. Plan discussed with: Patient, Other (rn) Date of Service: Oct 12, 2024 Billing Provider: PATRICIA CARCAMO MD Common Visit Codes: [id number] INP/OBS CARE(HIGH) LAUREN GONZALEZ RESIDENT Oct 12, 2024 15:51 PATRICIA CARCAMO MD Oct 12, 2024 23:33
[2024-10-12] MEDS: SUCRALFATE 1 GM/10 ML ORAL SUSP PO SCH (16:33)
[2024-10-12 17:00] VITALS: BP 138/77; PULSE 62; RESP 16; TEMP 98; O2SAT 95
[2024-10-12 20:00] VITALS: PULSE 66; O2SAT 94
[2024-10-12 21:00] VITALS: BP 134/76; PULSE 66; RESP 18; TEMP 98.3; O2SAT 93
[2024-10-12] MEDS ORDERED: PANTOPRAZOLE 40 MG/10 ML VIAL INJ IV SCH (22:00)
[2024-10-13 01:00] VITALS: BP 123/72; PULSE 67; RESP 17; TEMP 97.7; O2SAT 94
[2024-10-13 05:00] VITALS: BP 119/64; PULSE 60; RESP 17; TEMP 97.7; O2SAT 93
[2024-10-13 06:41] LABS: Hematocrit 34.1 % (36.0-46.0); Hemoglobin 11.9 g/dL (12.2-16.2); Mean Corpuscular Hemoglobin 31.8 pg (28.0-32.0); Mean Corpuscular Volume 91.3 fL (80.0-100.0); Nucleated Red Blood Cells % 0.0 %
[2024-10-13 06:56] LABS: Alanine Aminotransferase 14 U/L (7-40); Alkaline Phosphatase 75 U/L (46-116); Anion Gap 8 (5-15); BUN/Creatinine Ratio 38.9 (10.0-20.0); Blood Urea Nitrogen 51 mg/dL (9-23); Calcium 10.2 mg/dL (8.7-10.4); Carbon Dioxide 23 mmol/L (20-31); Chloride 104 mmol/L (98-107); Glucose 103 mg/dL (74-106); Potassium 4.4 mmol/L (3.5-5.1); Sodium 135 mmol/L (136-145); Total Protein 7.4 g/dL (5.7-8.2)
[2024-10-13 06:57] LABS: Albumin 3.4 g/dL (3.2-4.8); Bilirubin, Total 0.4 mg/dL (0.2-1.0)
[2024-10-13 08:00] VITALS: RESP 16
[2024-10-13] MEDS: SODIUM CHLORIDE 0.9% 1,000 ML IV ONE ×2 (08:43→08:45)
[2024-10-13 08:58] VITALS: BP 133/80; PULSE 58; RESP 17; TEMP 97.8; O2SAT 93
--- NOTE | 2024-10-13 10:06 | DVHPN2 ---
Progress Note - Dictate Date Seen: Oct 13, 2024 Medical Necessity Reason Pt with a Central, PICC or Fol: No Subjective No new complaints Patient tolerating soft mechanical diet Takes patient was taking moderate amount of Excedrin for fibromyalgia as Tylenol does not work EGD findings showed multiple gastric ulcers and a medium-sized duodenal bulb ulcer vital signs Vital Sign Date Time Temp Pulse Resp B/P (MAP) Pulse Ox O2 Delivery O2 Flow Rate FiO2 10/13/24 08:58 97.8 58 17 133/80 (97) 93 97.8 10/12/24 20:00 Room Air* 0 21 Total Intake and Output 10/12/24 10/12/24 10/13/24 15:00 23:00 07:00 Intake Total 100 ml 460 ml 700 ml Balance 100 ml 460 ml 700 ml medications Current Medications Medications Dose Ordered Sig/Crista Route Start Time Stop Time Status Last Admin Dose Admin Acetaminophen/ Hydrocodone Bitart 1 tab Q4HP PRN PO 10/11/24 09:45 10/12/24 00:52 1 TAB Ondansetron HCl 4 mg Q4HP PRN IV 10/11/24 09:45 Docusate Sodium 100 mg BIDPRN PRN PO 10/11/24 09:45 Acetaminophen 650 mg Q6HP PRN PO 10/11/24 09:45 Morphine Sulfate 2 mg Q4HPRN PRN IV 10/11/24 09:45 Metronidazole 100 ml @ 100 mls/hr Q8HR IV 10/11/24 14:00 10/13/24 05:45 100 MLS/HR Patient Own Medication 1 tab DAILY PO 10/12/24 10:00 Metoclopramide HCl 10 mg Q8HPRN PRN IV 10/11/24 11:30 Amlodipine Besylate 10 mg DAILY PO 10/12/24 10:00 10/13/24 08:57 10 MG Sucralfate 1 gm QID@0600,1130,1700,2200 PO 10/12/24 17:00 10/13/24 05:45 1 GM Pantoprazole Sodium 40 mg BID IV 10/12/24 22:00 10/13/24 08:58 40 MG objective General: NAD, AAOX3 Chest: lung brown clear to auscultation Heart: RRR, no murmur Abdomen: Epigastric abdominal tenderness to palpation, +BS Ext no c/c/e laboratory and microbiology Laboratory Tests 10/13/24 06:10 Test 10/13/24 06:10 Range/Units Serum Glucose 103 74-106 mg/dL Problems(with codes): (1) Gastric ulcer (2) Duodenal ulcer disease (3) Acute abdominal pain (4) Gastritis Prognosis PLAN: 1. Await for biopsy result 2. Protonix 40 mg bid IV maintain on halfway PPI 3. Carafate 1 g p.o. 4 times a day 4. Soft mechanical diet 5. DC aspirin NSAIDs smoking alcohol 6. Outpatient follow up with me for elective screening colonoscopy Plan discussed with: Patient TEJA PELAYO MD Oct 13, 2024 10:06
[2024-10-13] MEDS ORDERED: PANT40TA2 PO (11:59)
[2024-10-13] MEDS ORDERED: SUCR1SUS26 PO (11:59)
[2024-10-13] MEDS ORDERED: DICY10CA PO (11:59)
[2024-10-13 12:16] VITALS: BP 119/64; RESP 18; TEMP 36.6
[2024-10-13 13:00] VITALS: BP 136/82; PULSE 74; RESP 16; TEMP 97.8; O2SAT 92
[2024-10-13] MEDS ORDERED: LIDOCAINE 2% (LOCAL ANESTH.) PF 5ml SDV IJ ONE (13:04)
--- NOTE | 2024-10-13 15:47 | DVHDSRES ---
Discharge Summary Date of Admission Resident Creating Document: LAUREN GONZALEZ RESIDENT Oct 11, 2024 at 09:36 Date of Discharge: Oct 13, 2024 Admitting Diagnosis #acute abdominal pain due to severe gastro- duodenitis Labs/Diagnostic Data: Laboratory Results Test 10/13/24 06:10 10/12/24 05:53 10/11/24 06:45 White Blood Count 6.0 10^3/uL (4.4-10.8) Red Blood Count 3.73 10^6/uL (4.0-5.20) Hemoglobin 11.9 g/dL (12.2-16.2) Hematocrit 34.1 % (36.0-46.0) Mean Corpuscular Volume 91.3 fL (80.0-100.0) Mean Corpuscular Hemoglobin 31.8 pg (28.0-32.0) Mean Corpuscular Hemoglobin Concent 34.8 g/dL (32.0-36.0) Red Cell Distribution Width 15.4 % (11.8-14.3) Platelet Count 216 10^3/uL (140-450) Mean Platelet Volume 7.5 fL (6.9-10.8) Neutrophils (%) (Auto) 65.1 % (37.0-80.0) Lymphocytes (%) (Auto) 20.6 % (10.0-50.0) Monocytes (%) (Auto) 10.8 % (0.0-12.0) Eosinophils (%) (Auto) 3.3 % (0.0-7.0) Basophils (%) (Auto) 0.2 % (0.0-2.0) Neutrophils # (Auto) 3.9 10 ^3/uL (1.6-8.6) Lymphocytes # (Auto) 1.2 10 ^3/uL (0.4-5.4) Monocytes # (Auto) 0.7 10 ^3/uL (0-1.3) Eosinophils # (Auto) 0.2 10 ^3/uL (0-0.8) Basophils # (Auto) 0 10 ^3/uL (0-0.2) Nucleated Red Blood Cells 0.0 % Sodium Level 135 mmol/L (136-145) Potassium Level 4.4 mmol/L (3.5-5.1) Chloride Level 104 mmol/L (98-107) Carbon Dioxide Level 23 mmol/L (20-31) Anion Gap 8 (5-15) Blood Urea Nitrogen 51 mg/dL (9-23) Creatinine 1.31 mg/dL (0.550-1.02) Glomerular Filtration Rate Calc 46 mL/min (>90) BUN/Creatinine Ratio 38.9 (10.0-20.0) Serum Glucose 103 mg/dL (74-106) Calcium Level 10.2 mg/dL (8.7-10.4) Total Bilirubin 0.4 mg/dL (0.2-1.0) Aspartate Amino Transferase (AST) 20 U/L (13-40) Alanine Aminotransferase (ALT) 14 U/L (7-40) Alkaline Phosphatase 75 U/L (46-116) Total Protein 7.4 g/dL (5.7-8.2) Albumin 3.4 g/dL (3.2-4.8) Prothrombin Time 10.9 sec (9.3-11.8) Prothrombin Time INR 1.03 (0.9-1.15) Urine Color Yellow (Yellow) Urine Clarity Clear (Clear) Urine pH 5.5 (5.0-9.0) Urine Specific [place] 1.028 (1.001-1.035) Urine Protein Negative (Negative) Urine Ketones Trace (Negative) Urine Blood Negative /uL (Negative) Urine Nitrite Negative (Negative) Urine Bilirubin Negative (Negative) Urine Urobilinogen Normal mg/dL (Negative) Urine Leukocyte Esterase 1+ /uL (Negative) Urine RBC 5 /hpf (0 - 4) Urine Microscopic WBC 6 /HPF (0-5) Urine Squamous Epithelial Cells Few /hpf (<5) Urine Calcium Oxalate Crystals Few (None Seen) Urine Bacteria None seen /hpf (None Seen) Urine Mucus Few (None Seen) Urine Glucose Normal mg/dL (Normal) Other Laboratory Tests 10/13/24 06:10 Brief Hx & Hospital Course: Lolis Biggs is a 64-year-old female with past medical history of fibromyalgia, hypertension and irritable bowel syndrome Came in with the complaints of abdominal pain yesterday. Patient states abdominal pain Has been present since August but but worsened day before yesterday after she went to the chiropractor. The abdominal pain is epigastric, Cramping in nature, 10/ 10 in intensity, radiates to the back , aggravated by movement and relieved by lying down in the bed and staying still. She took some Pepto-Bismol that helped very little with her pain and so she came to the emergency department. Patient states that she had a hard time keeping food and drink down from the last week. Patient denies any fever, chills, shortness of breath, chest pain, nausea or vomiting. Brief history of hospitalization patient came in with acute epigastric abdominal pain. We started her with IV fluids and ondansetron for her nausea. A CT abdomen and pelvis showed scattered colonic diverticula without adjacent inflammatory changes to suggest diverticulitis. No small bowel obstruction was seen. A distended gallbladder with no calcified gallstones were visualized. We did an ultrasound which was normal. The patient was kept NPO and GI suggested EGD which was done. It showed 2-3 cm sliding-type hiatal hernia with slightly irregular squamocolumnar junction minimal grade erosive esophagitis; moderate to severe gastritis involving the antrum and distal body of the stomach with multipl;e gastric ulcers and erosions and ffgcawhs-jw-esxtbb duodenitis with a 2 cm duodenal postbulbar ulcer n the superior anterior surface with minimal oozing at the edges from scope pressure; postbulbar duodenal spasm. Patient was started on Protonix and Carafate. She was then given more IV fluids and liquid diet was started which was then changed to soft diet. For patient's history of hypertension we continued with her amlodipine and monitor the BP. For history of IBD we continued to monitor her symptoms. Patient is now stable for discharge and is able to tolerate soft diet. We are discharging her with Protonix and Carafate. She has been counseled to progress her diet slowly as tolerated from soft diet to more solid diet. She has also been counseled on not eating only food, spicy food. Patient has communicated understanding and we have asked her to follow up with her PCP. Pt is lying on bed General Appearance: Alert, Oriented X3, Cooperative, Not in acute distress HEENT: Atraumatic, Mucous membranes moist/pink Respiratory: Clear to auscultation, Normal air movement, No added sounds Cardiovascular: Regular rate, Normal S1, Normal S2, No murmurs Abdominal: Active bowel sounds, Soft, no distention, mild tenderness present in the upper right and left quadrant, epigastric region Extremities: No edema, Normal pulses, No tenderness/swelling Skin: No Significant rash, linear scar in the suprapubic region for ovarian cyst removal Neuro: Normal speech, sensorimotor deficits none Psych/Mental Status: Mental status NL, Mood NL Nurse was there as echo vascular technologist during examination Operations or Procedures single organ ultrasound IMPRESSION: 1. Scattered colonic diverticula without adjacent inflammatory changes to suggest diverticulitis. 2. No small bowel obstruction. 3. Distended gallbladder with no calcified gallstones visualized. Correlate with clinical findings. If clinically indicated, ultrasound could be obtained to further evaluate. 4. Additional nonacute findings as described above. abd/pel CT IMPRESSION: Normal exam of the abdomen. Condition at Discharge: Stable Final Diagnosis/Problems List #acute abdominal pain due to severe gastro- duodenitis #hiatal hernia with erosive esophagitis #history of hypertension #history of IBD Discharge Disposition: Home Discharge Instruct/Medications Diet: Consistent carbohydrate, Cardiac 2g Na,low cholest Diet comment: avdance diet from soft to solids as tolerated Activity: No Restrictions, As Tolerated Follow Up/Referral: follow up with PCP within 7 days followup at discharge clinic followup with gastrology outpatient Medications: protonix 40mg bid carafate 10ml qid resume home meds Scheduled Amlodipine Besylate (Amlodipine Besylate), 1 TAB PO DAILY, (Reported) Dicyclomine Hcl (Bentyl Capsule), 1 CAP PO BID Levocetirizine Hydrochloride (Levocetirizine Dihydrochl), 1 TAB PO DAILY, (Reported) Pantoprazole Sodium Sesquihydr (Protonix), 40 MG PO BID Sucralfate (Carafate Susp), 1 GM PO QID@0600,1130,1700,2200 Discharge Statement: "Patient was advised to return to the ER or call 911 if any headaches, dizziness, shortness of breath, chest pain, abdominal pain, bleeding, fevers, or worsening of medical condition. Patient was counseled about treatment plan, medications, possible side effects, patientverbalized understanding. All questions were answered to the best of my ability. This discharge took greater then 30 minutes in planning, reviewing documentation, counseling the patient, and discussing with other team members." ASSESSMENT ASSESSMENT Assessment #acute abdominal pain due to severe gastro- duodenitis #hiatal hernia with erosive esophagitis #history of hypertension #history of IBD Date of Service: Oct 13, 2024 Billing Provider: PATRICIA LEWIS MD Common Visit Codes: 83691-MNQ/OBS DISCH DAY >30min LAUREN GONZALEZ RESIDENT Oct 13, 2024 15:47 PATRICIA LEWIS MD Oct 14, 2024 23:48
== END 2024-10-13 13:13 | disposition home or self-care (01) | DRG 392 ==
LOC: ER 06:13 → OVERFLOW 09:36 → EAST 21:26
PROVIDERS: ADMIT Internal Medicine; ATTEND Emergency Medicine
PROC: 0DB68ZX Excision of Stomach, Via Natural or Artificial Opening Endoscopic, Diagnostic (ICD-10-PCS; 2024-10-12)
PROC: 0DB98ZX Excision of Duodenum, Via Natural or Artificial Opening Endoscopic, Diagnostic (ICD-10-PCS; principal; 2024-10-12 12:51)
DX: K29.80 Duodenitis without bleeding (principal); K22.10 Ulcer of esophagus without bleeding; I10 Essential (primary) hypertension; K25.9 Gastric ulcer, unspecified as acute or chronic, without hemorrhage or perforation; K26.9 Duodenal ulcer, unspecified as acute or chronic, without hemorrhage or perforation; K29.70 Gastritis, unspecified, without bleeding; K44.9 Diaphragmatic hernia without obstruction or gangrene; K58.9 Irritable bowel syndrome, unspecified; M79.7 Fibromyalgia; K57.30 Diverticulosis of large intestine without perforation or abscess without bleeding; K82.8 Other specified diseases of gallbladder; Z88.6 Allergy status to analgesic agent; Z88.5 Allergy status to narcotic agent; Z88.1 Allergy status to other antibiotic agents; Z91.018 Allergy to other foods
CPT/HCPCS: 36415; 43239; 74176; 76705; 80048; 80053; 81001; 85025; 85610; 93005; 96374; G0378; J2003; J2405; J2470; J2704; J3490